=== PATIENT | male | born 1995 | race Caucasian/White ===

== ENCOUNTER 2019-12-24 00:40 | Emergency (ER) | payer OTHER ==
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
[2019-12-24] MEDS ORDERED: Lidocaine 1% 10 ML MDV INJECT ONE (01:04)
[2019-12-24] MEDS ORDERED: Diphtheria,Pertussis(Acell),Tetanus Vaccine 0.5 ML Syringe IM ONE (01:04)
[2019-12-24] MEDS ORDERED: Lidocaine 1% 10 ML MDV ONE (01:22)
--- NOTE | 2019-12-24 07:22 | CT ---
Head CT Technique: Multiple axial sections through the brain were obtained. Intravenous contrast was not utilized. Comparison: No prior intracranial imaging is available. Findings: Mild soft tissue swelling seen within the left frontal region and around the left ear. Ventricles along with basal cisterns and sulci over the convexities are within normal limits for the patient's age. No abnormal parenchymal densities are seen. No evidence of intracranial hemorrhage. No midline shift or mass-effect is identified. Mastoid sinuses are clear. Visualized paranasal sinuses are clear. No acute calvarial abnormality is appreciated. Impression: 1. Mild soft tissue swelling within the left frontal scalp and around the left ear. 2. No acute intracranial abnormality is identified. Diagnostic code #2 This report was dictated in [place] Standard Time I agree with preliminary report from [facility], finalized on 12/24/19, 3:37 AM Central Time
== END 2019-12-24 03:33 | disposition home or self-care (01) ==
LOC: JD.ED 00:40
DX: S01.312A Laceration without foreign body of left ear, initial encounter (principal); Z23 Encounter for immunization; V19.9XXA Pedal cyclist (driver) (passenger) injured in unspecified traffic accident, initial encounter; Y92.009 Unspecified place in unspecified non-institutional (private) residence as the place of occurrence of the external cause
CPT/HCPCS: 12014; 70450; 90471; 90715; 99283; J2001